=== PATIENT | female | born 1955 | race Caucasian/White ===

== ENCOUNTER 2019-11-19 12:49 | Outpatient (CLI) | payer MEDICARE, SELFPAY ==
--- NOTE | 2019-11-19 13:03 | MM_ITS ---
WS: [id number] SCREENING DIGITAL MAMMOGRAM WITH CAD HISTORY: SCREENING COMPARISON: 02/20/2008 Bilateral CC and MLO views submitted. Computer aided detection analyzed. Breast composition: There are scattered areas of fibroglandular density. No suspicious masses, microc alcifications or architectural distortion. MM/[place] [id number] IMPRESSION: BI-RADS: 1-Negative FOLLOW UP: 1 Year Follow-up
--- NOTE | 2019-11-19 13:50 | XR_ITS ---
WS: [id number] Bone mineral density performed on a [employer], 11/19/2019 Clinical data: POSTMENOPAUSAL Findings: The first 4 lumbar vertebral bodies demonstrated the bone mineral density of 1.127 g/cm2 for a young adult T score of -0.4. Measurement of the left hip reveals a bone mineral density of 1.123 g/cm2 with a young adult T score of 0.9. Measurement of the right hip reveals the bone mineral density of 1.081 g/cm2 for young adult T score of 0.6. XR/XR DEXA axial skeleton* [id number] Impression: Normal bone mineral density of the lumbar spine and both hips
== END 2019-11-19 12:50 | disposition home or self-care (01) ==
LOC: RADSHAW 12:49
PROVIDERS: Family Provider Family Medicine; PCP Family Medicine; Visit Provider Family Medicine
DX: Z12.31 Encounter for screening mammogram for malignant neoplasm of breast (principal); Z78.0 Asymptomatic menopausal state
CPT/HCPCS: 77067; 77080

== ENCOUNTER 2021-03-07 14:18 | Outpatient (CLI) | payer MEDICARE, SELFPAY ==
--- NOTE | 2021-03-07 14:26 | MM_ITS ---
WS: [id number] SCREENING DIGITAL MAMMOGRAM WITH CAD HISTORY: SCREENING COMPARISON: 11/19/2019 and 02/20/2008 Bilateral CC and MLO views submitted. Computer aided detection analyzed. Breast composition: There are scattered areas of fibroglandular density. No suspicious masses, microc alcifications or architectural distortion. MM/[place] [id number] IMPRESSION: BI-RADS: 1-Negative FOLLOW UP: 1 Year Follow-up
== END 2021-03-07 14:19 | disposition home or self-care (01) ==
LOC: RADSHAW 14:22
PROVIDERS: PCP Family Medicine; Visit Provider Family Medicine
DX: Z12.31 Encounter for screening mammogram for malignant neoplasm of breast (principal)
CPT/HCPCS: 77067

== ENCOUNTER 2021-07-29 08:20 | Outpatient (CLI) | payer MEDICARE, SELFPAY | END 2021-07-29 08:21 | disposition home or self-care (01) | PROVIDERS: PCP Family Medicine; Visit Provider Family Medicine | DX: R19.7 Diarrhea, unspecified (principal) | CPT/HCPCS: 87506 ==

== ENCOUNTER 2021-12-11 08:32 | Outpatient (CLI) | payer MEDICARE, SELFPAY ==
--- NOTE | 2021-12-11 10:09 | XR_ITS ---
WS: [id number] SCREENING DEXA SCAN [employer] CLINICAL INFORMATION: OSTEOPOROSIS, POST MENOPAUSAL COMPARISON: November 19, 2019 FINDINGS: The L1-L4 bone mineral density measures 1.127 g/cm2. This corresponds to a T score score of -0.4 and Z score of 1.0. Left femoral neck bone mineral density measures 1.111 g/cm2. This corresponds to a T score of 0.8 and Z score of 2.0. Right femoral neck bone mineral density measures 1.070 g/cm2. This corresponds to a T score 0.5of and Z score of 1.7. Mean femoral neck bone mineral density measures 1.091 g/cm2. This corresponds to a T score of 0.7 and Z score of 1.9. XR/XR DEXA axial skeleton* [id number] IMPRESSION: Normal bone mineralization. Patient's FRAX calculated 10 year probability for major osteoporotic fracture i s 19.4 % and osteoporotic hip fracture is 0.9%.
== END 2021-12-11 08:33 | disposition home or self-care (01) ==
LOC: RAD 08:37
PROVIDERS: PCP Family Medicine; Visit Provider Family Medicine
DX: M81.0 Age-related osteoporosis without current pathological fracture (principal); Z78.0 Asymptomatic menopausal state
CPT/HCPCS: 77080

== ENCOUNTER 2023-12-13 12:46 | Outpatient (CLI) | payer MEDICARE, SELFPAY ==
--- NOTE | 2023-12-13 13:06 | MM_ITS ---
WS: [id number] BILATERAL 3D TOMOSYNTHESIS DIGITAL SCREENING MAMMOGRAPHY WITH CAD CLINICAL INFORMATION: SCREENING HISTORY: Screening mammogram. No current complaints. COMPARISON: 2020 TECHNIQUE: Bilateral CC and MLO views. FINDINGS: Scattered fibroglandular densities bilaterally. No suspicious focal mass, asymmetry, calcifications, or architectural distortion. No evidence of malignancy. IMPRESSION: MM/[place] [id number] BI-RADS: 1-Negative FOLLOW UP: 1 Year Follow-up Recommend return to annual screening mammography.
--- NOTE | 2023-12-13 14:04 | XR_ITS ---
WS: [id number] SCREENING DEXA SCAN [employer] CLINICAL INFORMATION: OSTEOPOROSIS COMPARISON: 2021 FINDINGS: The L1-L4 bone mineral density measures 1.139 g/cm2. This corresponds to a T score score of -0.3 and Z score of 1.1. Left femoral neck bone mineral density measures 1.093 g/cm2. This corresponds to a T score of 0.7 and Z score of 2.0. Right femoral neck bone mineral density measures 1.075 g/cm2. This corresponds to a T score 0.5of and Z score of 1.8. Mean femoral neck bone mineral density measures 1.084 g/cm2. This corresponds to a T score of 0.6 and Z score of 1.9. IMPRESSION: Normal bone mineralization lumbar spine. Normal bone mineralization femoral necks. Patient's FRAX calculated 10 year probability for major osteoporotic fracture is 18.2% and osteoporot ic hip fracture is 1.6%. Bone mineral density lumbar spine increased 1.1% Bone mineral density femoral necks decreased -0.6%
== END 2023-12-13 12:47 | disposition home or self-care (01) ==
LOC: RAD 12:47
PROVIDERS: PCP Family Medicine; Visit Provider Family Medicine
DX: M81.0 Age-related osteoporosis without current pathological fracture (principal); Z12.31 Encounter for screening mammogram for malignant neoplasm of breast
CPT/HCPCS: 77063; 77067; 77080

== ENCOUNTER → 2023-12-26 14:13 | Outpatient (BNVA) | payer MEDICARE, SELFPAY | PROVIDERS: PCP Family Medicine; Visit Provider Podiatrist Foot & Ankle Surgery | DX: S92.415A Nondisplaced fracture of proximal phalanx of left great toe, initial encounter for closed fracture (principal); S99.922A Unspecified injury of left foot, initial encounter; W19.XXXA Unspecified fall, initial encounter | CPT/HCPCS: 99203 ==

== ENCOUNTER 2024-01-08 10:35 | Outpatient (CLI) | payer MEDICARE, SELFPAY ==
[2024-01-08 11:16] LABS: Basophils % 0.7 %; Eosinophils # 0.1 10^3/uL (0.0-0.8); Eosinophils % 2.1 %; Hematocrit 45.2 % (36-47); Lymphocytes % 33.3 %; Mean Corpuscular HGB Conc 31.4 g/dL (30-55); Mean Corpuscular Hemoglobin 28.8 pg (27-33); Mean Corpuscular Volume 91.7 fl (85-98); Mean Platelet Volume 8.9 fL (7.4-10.4); Monocytes # 0.4 10^3/uL (0.2-0.9); Monocytes % 7.1 %; Neutrophils # 3.43 10^3/uL (1.8-7.7); Neutrophils % 56.6 %; Nucleated Red Blood Cells % 0 %; Platelet Count 295 10^3/cmm (157-399); Red Blood Count 4.93 10^6/uL (3.85-5.65); Red Cell Distribution Width 13.3 % (12.1-15.1); White Blood Count 6.06 10^3/uL (3.29-11.43)
[2024-01-08 11:35] LABS: Alanine Aminotransferase 221 U/L (0-33); Albumin Level 4.5 g/dL (3.5-5.2); Alkaline Phosphatase 173 U/L (35-105); Amylase 41 U/L (28-100); Anion Gap 15.2 (5-19); Aspartate Amino Transferase 101 U/L (0-32); Blood Urea Nitrogen 13 mg/dL (8-23); Calcium 9.4 mg/dL (8.5-10.5); Carbon Dioxide 25 mmol/L (22-29); Chloride 103 mmol/L (98-107); Globulin 3.6 g/dL (1.3-4.6); Glomerular Filtration Rate 82.7 mL/min (90-130); Glucose 107 mg/dL (65-115); Lipase 42 U/L (13-60); Osmolality Calculated 289 mOsm/kg (285-295); Potassium 4.2 mmol/L (3.5-5.1); Sodium 139 mmol/L (136-145); Total Bilirubin 0.4 mg/dL (0.15-1.2); Total Protein 8.1 g/dL (6.6-8.7)
[2024-01-08 14:12] LABS: C.Diff PCR (Lab) NEGATIVE (Negative)
== END 2024-01-08 10:36 | disposition home or self-care (01) ==
LOC: LAB 10:39
PROVIDERS: PCP Family Medicine; Visit Provider Family Medicine
DX: R10.11 Right upper quadrant pain (principal); R10.13 Epigastric pain; R19.7 Diarrhea, unspecified; R63.4 Abnormal weight loss
CPT/HCPCS: 36415; 80053; 82150; 83690; 83993; 85025; 86140; 87045; 87177; 87209; 87427; 87449; 87493

== ENCOUNTER 2024-01-08 13:34 | Outpatient (CLI) | payer MEDICARE, SELFPAY ==
--- NOTE | 2024-01-08 13:36 | CT_ITS ---
WS: [id number] CT ABDOMEN PELVIS TECHNIQUE: Contrast-enhanced CT of the abdomen and pelvis with coronal and sagittal reformatted image s. CLINICAL INFORMATION: CHRONIC DIARRHEA, WT LOSS, RUQ PAIN COMPARISON: None. DLP: 311.[address] scans at [facility] use at least one of these dose optimization techniques: automated e xposure control; mA and/or kV adjustment per patient size (includes targeted exams where dose is matc hed to clinical indication); or iterative reconstruction. FINDINGS: Mild diffuse fatty infiltration of the liver. Fluid distended gallbladder. Distended common bile duct measuring 8 mm at the pancreatic head. Increased density in the distal common bile duct nonspecific and may represent sludge. Recommend further evaluation with MRCP or ERCP to assess for obstruction. In addition, prominent thickening and enhancing LEFT intrahepatic duct, common hepatic duct, and comm on bile duct suspicious for cholangitis. Consider ascending cholangitis. Recommend correlation with b iliary function studies. Normal pancreatic parenchymal enhancement. No visualized pancreatic head les ion. Normal portal vein and splenic vein. Normal GE junction. Adrenal glands are normal. Normal renal parenchymal enhancement. Prominent LEFT renal pelvis. No hydronephrosis. Tiny bilateral renal cysts. Normal caliber abdominal aorta. Celiac and SMA are patent. Proximal renal arteries are patent. Somewhat patulous transverse colon with air-fluid levels. No evidence of bowel obstruction. Multifoca l narrowing in the sigmoid colon. This may be due to spasm but indeterminate and recommend further ev aluation with colonoscopy or sigmoidoscopy. Normal caliber abdominal aorta. Aortic calcification. Lung bases are well aerated. Slight bibasilar atelectasis. Mild lumbar curve. Slight anterolisthesis L4 on L5. Lumbar curve convex LEFT. IMPRESSION: 1. Diffuse dilatation of the common bile duct with wall thickening and enhancement suspicious for ch olangitis. Consider ascending cholangitis. Correlation with biliary function studies. Recommend furth er evaluation with MRCP and/or ERCP. 2. Dilated and thickened common bile duct measures approximately 8 mm with some increased density in the distal common bile duct. Recommend ERCP or MRCP to evaluate for obstruction. 3. Fluid distended gallbladder. No visualized cholelithiasis. 4. Diffuse fatty infiltration of the liver. 5. Several areas of multifocal narrowing in the sigmoid colon may be due to spasm but indeterminate. Recommend follow-up with colonoscopy or sigmoidoscopy to assess for stricture. 6. No other acute findings. Notified Tyrese Salgado MD at 01/08/2024 3:54 PM.
[2024-01-08] MEDS: iohexol 350 mg/mL 500 mL Btl (per mL) PO (14:21)
[2024-01-08] MEDS: iohexol 350 mg/mL 500 mL Btl (per mL) IV (14:21)
== END 2024-01-08 13:35 | disposition home or self-care (01) ==
LOC: RAD 13:34
PROVIDERS: PCP Family Medicine; Visit Provider Family Medicine
DX: R10.11 Right upper quadrant pain (principal); R19.7 Diarrhea, unspecified; R63.4 Abnormal weight loss; K83.8 Other specified diseases of biliary tract; K76.0 Fatty (change of) liver, not elsewhere classified; R10.13 Epigastric pain
CPT/HCPCS: 36415; 74177; 80053; 82150; 83690; 85025; 86140; 87493; Q9967

== ENCOUNTER 2024-01-09 10:32 | Outpatient (CLI) | payer MEDICARE, SELFPAY | END 2024-01-09 10:33 | disposition home or self-care (01) | LOC: LAB 10:35 | PROVIDERS: PCP Family Medicine; Visit Provider Family Medicine | DX: R19.7 Diarrhea, unspecified (principal) | CPT/HCPCS: 83993; 87045; 87177; 87209; 87427; 87449 ==

== ENCOUNTER → 2024-12-03 08:57 | Outpatient (BNVA) | payer MEDICARE, BC, SELFPAY | PROVIDERS: PCP Family Medicine; Visit Provider Podiatrist Foot & Ankle Surgery | DX: M79.671 Pain in right foot (principal); M79.672 Pain in left foot; L84 Corns and callosities; M20.41 Other hammer toe(s) (acquired), right foot; M20.42 Other hammer toe(s) (acquired), left foot; M21.611 Bunion of right foot; M21.612 Bunion of left foot; M21.621 Bunionette of right foot; M21.622 Bunionette of left foot | CPT/HCPCS: 73630; 99213 ==

== ENCOUNTER 2024-12-29 10:07 | Outpatient (CLI) | payer MEDICARE, BC, SELFPAY | END 2024-12-29 10:08 | disposition home or self-care (01) | LOC: SPT 10:07 | PROVIDERS: PCP Family Medicine; Visit Provider Podiatrist Foot & Ankle Surgery | DX: Z46.89 Encounter for fitting and adjustment of other specified devices (principal); L84 Corns and callosities; M20.41 Other hammer toe(s) (acquired), right foot; M20.42 Other hammer toe(s) (acquired), left foot; M21.611 Bunion of right foot; M21.612 Bunion of left foot; M21.621 Bunionette of right foot; M21.622 Bunionette of left foot | CPT/HCPCS: L3030 ==

== ENCOUNTER 2025-01-05 09:56 | Outpatient (CLI) | payer MEDICARE, BC, SELFPAY ==
--- NOTE | 2025-01-05 09:58 | MM_ITS ---
WS: [id number] BILATERAL 3D TOMOSYNTHESIS DIGITAL SCREENING MAMMOGRAPHY WITH CAD CLINICAL INFORMATION: SCREENING HISTORY: Screening mammogram. No current complaints. COMPARISON: 2023 TECHNIQUE: Bilateral CC and MLO views. FINDINGS: Scattered fibroglandular densities bilaterally. No suspicious focal mass, asymmetry, calcifications, or architectural distortion. No evidence of malignancy. Vascular calcification. MM/MM scr tomosynthesis [id number] IMPRESSION: DENSITY: There are scattered areas of fibroglandular density. BI-RADS: 2 - Benign. FOLLOW UP: 1 Year Follow-up Recommend return to annual screening mammography.
== END 2025-01-05 09:57 | disposition home or self-care (01) ==
LOC: RAD 09:58
PROVIDERS: PCP Family Medicine; Visit Provider Family Medicine
DX: Z12.31 Encounter for screening mammogram for malignant neoplasm of breast (principal); R92.323 Mammographic fibroglandular density, bilateral breasts; R92.1 Mammographic calcification found on diagnostic imaging of breast
CPT/HCPCS: 77063; 77067

== ENCOUNTER 2025-03-05 14:06 | Outpatient (CLI) | payer MEDICARE, BC, SELFPAY ==
--- NOTE | 2025-03-05 14:13 | US_ITS ---
WS: [id number] RENAL ULTRASOUND HISTORY: RECURRENT UTI COMPARISON: None available. TECHNIQUE: 2-D and color Doppler imaging of the kidney submitted. Right kidney: 9.7 cm x 3.9 cm x 3.4 cm. Cortex: 1.1 cm Kidney is poorly visualized. There is no obstruction. Mass would be difficult to exclude. Left kidney: 10.5 cm x 4.6 cm x 4.7 cm. Cortex: 1.5 cm Limited visualization. No obstruction. Mass would be difficult to exclude. Aorta: Mild atherosclerosis. Urinary Bladder: Normal distention. US/US renal BI* [id number] IMPRESSION: 1. No renal obstruction. 2. Limited visualization of the kidneys. Mass would be difficult to exclude.
== END 2025-03-05 14:07 | disposition home or self-care (01) ==
PROVIDERS: PCP Family Medicine; Visit Provider Nurse Practitioner Family
DX: N39.0 Urinary tract infection, site not specified (principal); I70.0 Atherosclerosis of aorta
CPT/HCPCS: 76770